=== PATIENT | female | born 1990 | race Caucasian/White ===

== ENCOUNTER 2017-03-26 22:03 | Emergency (ER) | payer MEDICAID ==
--- NOTE | 2017-03-30 00:47 | ER ---
ADMIT: 03/26/2017 RM/LOC: ER [facility] MR#: [id number] [address] [facility] [address] [place], [place] [address] DOTTIE BLANCO [address] [address] Emergency Room Report SEX: F AGE: 26 : 1990 CORRECTION: 03/27/2017 1057 VDG DATE: 03/26/2017 HISTORY OF PRESENT ILLNESS: The patient is a 26-year-old female, 2, para 0, who came to the ER with chief complaint of vaginal bleeding. The patient states her last menstrual period was January 15, which per LMP, the patient is 10 weeks and 1 days. The patient states since Wednesday, she had vaginal bleeding. The patient has been followed up with Dr. Fitzgerald and she was told that the ultrasound did not show any intrauterine and productive conception and the patient most probably had miscarriage. Patient states she went to Dr. Jamie Hernandez's Office on Wednesday, in which she had an ultrasound and was mentioned that there is sac without any product of conception inside. Per patient, she was told that she had miscarriage. The patient states after she left Dr. Hernandez's office, she had abdominal pain, which was crampy and was intermittent and moderate and also had vaginal bleeding. The patient states vaginal bleeding today increased and she passed a few clots. Patient denies passage of any tissue. The patient denies any nausea or any other symptoms. PHYSICAL EXAMINATION: VITAL SIGNS: Heart rate was in mid 90s, blood pressure was normal. GENERAL: Patient was afebrile. The patient was in moderate pain. IV fluids were given to the patient and 1 L of normal saline. Pain was controlled effectively with morphine IV. HEAD AND NECK: Normal. CHEST: Clear. ABDOMEN: Nontender and no rebound or guarding. PELVIC: There is 3-5 mL of blood in the canal. There is a small 3 mm clot in the cervical os. There are very mild streaks of blood coming out. Which after cleaning, I did not see any active profuse bleeding. The os was open, and the rest of the physical examination was noncontributory. The patient had beta HCG level of 6100 and blood group was O positive. The patient had hemoglobin of 10.5 with white BC of 8.8, and platelet of 231. The ADMIT: 03/26/2017 RM/LOC: ER [facility] MR#: [id number] [address] [address] FRANCIS DOTTIE [address] [place] [address] Emergency Room Report SEX: F AGE: 26 : 1990 INR was less than 1 and PTT was 31. Pelvic ultrasound transvaginal shows 6 weeks and 2-day size, low-lying empty gestational sac, some blood products in the cervical canal. The patient was observed in the ER and did not have any active bleeding in the ER. The abdominal pain was controlled. At this stage, the possibility of very early versus blighted ovum/miscarriage was discussed with the patient. I talked to the patient that considering the previous examinations and previous workup by the other gynecologists the blighted ovum miscarriage is our top differentials. The patient was advised to follow up with the [facility] in 2 days and had no active bleeding and was discharged to home. The patient agreed with the plan and discharged home. Prince Canas MD/ prashanth JOB #: [id number] CC: Prince Canas MD, Attending Physician Daria Hernandez MD, Family Physician CORRECTION: 03/27/2017 1057 VDG
== END 2017-03-27 01:13 | disposition home or self-care (01) ==
LOC: ER 22:03
DX: O20.9 Hemorrhage in early pregnancy, unspecified (principal); Z3A.01 Less than 8 weeks gestation of pregnancy; O16.1 Unspecified maternal hypertension, first trimester